=== PATIENT | female | born 1985 | race Caucasian/White ===

== ENCOUNTER 2016-08-04 07:20 | Emergency (ER) ==
[2016-08-04] MEDS ORDERED: ZOFRAN IV ONE (07:41)
[2016-08-04] MEDS ORDERED: MORPHINE IV ONE (07:41)
[2016-08-04] MEDS ORDERED: NS 1,000 ML IV ONE (07:41)
[2016-08-04 07:59] LABS: URINE MICRO REVIEW NEEDED? NO; URINE SOURCE CLEAN CATCH
[2016-08-04 08:00] LABS: MANUAL DIFF NEEDED? NO
[2016-08-04 08:02] LABS: BASO% 0.6 % (0.0-0.8); BILIRUBIN URINE NEGATIVE (NEGATIVE); BLOOD URINE NEGATIVE (NEGATIVE); COLOR YELLOW; EOS# 0.27 X1000 (0.0-0.7); EOS% 3.8 % (0.0-10.0); GLUCOSE URINE NEGATIVE (NEGATIVE); HEMATOCRIT 39.9 % (37.0-47.0); HEMOGLOBIN 13.1 g/dL (12.0-16.0); LEUKOCYTES URINE MODERATE (NEGATIVE); LYMPH# 1.78 X1000 (1.2-3.4); LYMPH% 25.2 % (20.5-51.1); MCH 27.7 PG (27-31); MCHC 32.8 g/dL (33-37); MCV 84.4 FL (81-99); MONO# 0.39 X1000 (0.11-0.59); MONO% 5.5 % (1.7-9.3); MPV 11.1 FL (7.4-10.4); NEUT% 64.9 % (42.2-75.2); NITRITE URINE NEGATIVE (NEGATIVE); PH URINE 5.5; PLT 271 X1000 (130-400); PROTEIN URINE NEGATIVE (NEGATIVE); RBC 4.73 XMIL (4.2-5.4); SP GRAVITY URINE 1.017; TURBIDITY URINE HAZY (CLEAR); UROBILINOGEN URINE NORMAL (NORMAL)
[2016-08-04 08:04] LABS: UR EPITHELIAL CELLS <10 /HPF (<10); URINE BACTERIA 2+ /HPF; URINE CULTURE NEEDED? YES; URINE RBC <10 /HPF (<10)
[2016-08-04 08:33] LABS: AGAP 13; ALBUMIN 4.2 g/dL (3.5-5.0); ALKALINE PHOSPHATASE 75 U/L (32-104); AMYLASE 42 U/L (20-200); BUN 17 mg/dL (8-22); CALCIUM 9.2 mg/dL (8.8-10.2); CHLORIDE 102 mmol/L (98-107); COSMO 274; GOT 59 U/L (10-30); GPT 58 U/L (10-36); LIPASE 32 U/L (13-60); POTASSIUM 4.6 mmol/L (3.5-5.1); SODIUM 137 mmol/L (136-145); TCO2 22 mmol/L (25-35); TOTAL BILIRUBIN 0.66 mg/dL (0.20-1.00); TOTAL PROTEIN 7.4 g/dL (6.3-8.3)
--- NOTE | 2016-08-04 08:34 | PROVIDER DOCUMENTATION ---
HPI-Abdominal Pain/GI Problem - General Source: patient - History of Present Illness-ABD Abdominal Pain Onset Location: reports: RUQ Pain Radiation: reports: no radiation Quality of Pain: reports: aching, cramping Severity in ED: reports: moderate Onset/Duration: reports: 4-6 hours ago Timing: reports: still present Activities at Onset: reports: none Exposure to sick contacts?: No Modifying Factors: improves with: nothing Associated Symptoms: reports: fatigue, malaise, nausea. denies: chest pain, constipation, cough, diaphoresis, dizziness, fever/chills, loss of appetite, muscle aches, rash, seizure, shortness of breath, sensory/motor loss, pain with inspiration, vomiting Last BM: unsure Dark Stools Present?: reports: none noticed Bruising or Bleeding Gums?: No Similar Symptoms Previously?: Yes Recently seen or treated by another doctor?: Yes <Adryan Almaguer - Last Filed: 08/04/16 08:29> <Giana Vieira - Last Filed: 08/04/16 09:47> - General Chief Complaint: Abdominal Pain Stated Complaint: RT SIDE PAIN Time Seen by Provider: 08/04/16 07:25 Allergies/Adverse Reactions: Patient Allergies Allergy/AdvReac Type Severity Reaction Status Date / Time No Known Allergies Allergy Verified 01/03/16 20:12 - History of Present Illness-ABD Nature of Presenting Problems: Reports RUQ pain since 6 hours ago and feeling nauseated. Reports been feeling bad since 4 days ago and wants to pass out. Pt looks comfortable whenseena t ER. Denies F/C/DARNELL/LOC/cough/SOB/CP. (Adryan Almaguer) Review of Systems - Adult - REVIEW OF SYSTEMS - ADULT Constitutional: reports: no symptoms reported. denies: fever, fatique Eyes: reports: no symptoms reported Ears, Nose, Mouth & Throat: reports: no symptoms reported Cardiovascular: reports: no symptoms reported Respiratory: reports: no symptoms reported. denies: chronic cough, cough, hemoptysis, pleurisy Gastrointestinal: reports: see HPI, abdominal pain, nausea. denies: constipation, diarrhea, poor appetite, rectal bleeding, vomiting Genitourinary: reports: no symptoms reported Musculoskeletal: reports: no symptoms reported Integumentary: reports: no symptoms reported Neurological: reports: no symptoms reported Psychiatric: reports: no symptoms reported Endocrine: reports: no symptoms reported Hematologic/Lymphatic: reports: no symptoms reported <AlmaguerAdryan X - Last Filed: 08/04/16 08:29> Past History - Adult - PAST MEDICAL HISTORY-ADULT Major Childhood Illnesses: reports: denies history - PRIOR SURGERIES/PROCEDURES Surgical/Procedure History: reports: reviewed, not pertinent - PRIOR HOSPITALIZATIONS Prior Hospitalizations: reports: for other non-related - IMMUNIZATION STATUS Childhood Immunizations: See Nurse Assessment Flu Vaccine: See Nurse Assessment - FAMILY HISTORY Family History: reviewed, not pertinent <AlmaguerAdryan X - Last Filed: 08/04/16 08:29> Physical Exam-General - PHYSICAL EXAM-ADULT Initial Vital Signs Reviewed: Yes - CONSTITUTIONAL General Appearance: appears well, alert, no apparent distress - EYES Eyes: PERRL/EOMI, pink conjunctivae - HEAD, EARS, NOSE, MOUTH & THROAT HENMT: normocephalic/atraumatic, moist mucous membranes, normal ENT inspection - NECK Neck: non-tender, full range of motion, supple - RESPIRATORY Respiratory: chest non-tender, lungs clear, normal breath sounds - CARDIOVASCULAR Cardiovascular: normal peripheral pulses, regular rate, rhythm, no edema - GASTROINTESTINAL (ABDOMEN) Abdominal Exam: normal bowel sounds, non tender, soft, no organomegaly, tenderness (RUQ tenderness, no gaurding and no rebound.), Green's sign. negative: distended, guarding, rebound, spleenomegaly, McBurney's point tenderness - LYMPHATIC Lymphatic: no adenopathy - MUSCULOSKELETAL Back Exam: normal inspection Extremity: normal range of motion, non-tender, normal gait, normal inspection - SKIN Integumentary: normal color, normal turgor - NEUROLOGIC Neurologic: no motor/sensory deficits - PSYCHIATRIC Psych/Mental Status: normal mood/affect, normal thought content, normal thought process, oriented x 3 <TrippAdryan X - Last Filed: 08/04/16 08:29> Progress - ULTRASOUND (By Radiology) 1 US Study: Abdomen US Results: verbal from radiology said gallbladder is normal; no acute disease <Giana Vieira - Last Filed: 08/04/16 09:47> Departure <Adryan Almaguer - Last Filed: 08/04/16 08:29> - Departure Time of Disposition Order: 09:17 Certified Medical Emergency: Emergent <Giana Vieira - Last Filed: 08/04/16 09:47> - Departure DIAGNOSIS: Abdominal pain Qualifiers: Abdominal location: right upper quadrant Qualified Code(s): R10.11 - Right upper quadrant pain UTI (urinary tract infection) Qualifiers: Urinary tract infection type: site unspecified Disposition: HOME 01 Condition: Good Prescriptions: Sulfamethoxazole/Trimethoprim [Bactrim Ds Tablet] 1 each PO BID #20 tablet Tramadol HCl [Ultram] 50 mg PO TID #15 tablet Referrals: None,PCP [Primary Care Provider] - Attestation - Scribe Verification/Attestation Scribe:: Giana Vieira Acting as Scribe for:: Adryan Almaguer Scribe documention review:: This chart was documented by a scribe and accurately reflects the service the provider performed and the decisions made by the provider. <Giana Vieira - Last Filed: 08/04/16 09:47> Physician Attestation
[2016-08-04] MEDS ORDERED: ROCEPHIN 1 GM/NS 50 ML IV ONE (08:48)
--- NOTE | 2016-08-04 08:55 | Diag Imaging Result Document ---
PROCEDURE NAME: US GB < RUQ (LIMITED) - 08/04/2016 RIGHT UPPER QUADRANT ULTRASOUND: FINDINGS: The pancreatic head is normal in appearance. The remainder is not well demonstrated. The aorta and inferior vena cava are normal in appearance where they are visible. The liver is normal in appearance. There is antegrade flow in the portal vein. There is no evidence of biliary dilatation, with the common bile duct measuring 2 mm. The gallbladder is clear and nontender. The right kidney is without evidence of hydronephrosis or mass. IMPRESSION: No evidence of acute disease.
--- NOTE | 2016-08-04 09:29 | Diag Imaging Result Document ---
PROCEDURE NAME: CHEST-PORTABLE - 08/04/2016 AP PORTABLE CHEST: TIME: 0811 hours. FINDINGS: There is no evidence of acute cardiac or pulmonary disease. The inspiration is slightly better than on 12/07/2015. IMPRESSION: No acute disease.
[2016-08-04 10:31] VITALS: BP 138/76
== END 2016-08-04 11:02 | disposition home or self-care (01) ==
LOC: ED 07:20
DX: N39.0 Urinary tract infection, site not specified (principal); R10.11 Right upper quadrant pain; R53.83 Other fatigue; R53.81 Other malaise; R11.0 Nausea; R10.811 Right upper quadrant abdominal tenderness
CPT/HCPCS: 71010; 76705; 80053; 81001; 81025; 82150; 83690; 85025; 87088; 96361; 96365; 96375; J0696; J2270; J2405; J7030